=== PATIENT | female | born 1975 | race Caucasian/White ===

== ENCOUNTER 2019-02-28 10:12 | Emergency (ER) | payer OTHER ==
[~2019-02-28] VITALS: Ht 162.6 cm; Wt 75.5 kg
[2019-02-28 10:47] LABS: COLLECTION METHOD CLEAN CATCH
[2019-02-28 10:53] LABS: PH 7 (5-8); SQUAMOUS EPITHELIAL 0-2 /hpf; URINE APPEARANCE Clear; URINE BACTERIA None Seen /hpf; URINE BILIRUBIN Negative (NEGATIVE); URINE BLOOD Negative (NEGATIVE); URINE COLOR Straw; URINE GLUCOSE Negative (NEGATIVE); URINE KETONE Negative (NEGATIVE); URINE LEUKOCYTE ESTERASE Negative (NEGATIVE); URINE NITRATE Negative (NEGATIVE); URINE PROTEIN(semi-quant) Negative (NEGATIVE); URINE RBC 0-2 /hpf; URINE UROBILINOGEN Negative (NEGATIVE)
[2019-02-28 10:55] LABS: BASO # 0.1 (0.0-0.2); BASO % 0.4 % (0.0-2.0); EOS # 0.1 (0.0-0.7); GRAN # 10.4 (1.4-6.5); GRAN % 72.4 % (42.2-75.2); HEMATOCRIT 42.1 % (37.0-47.0); HEMOGLOBIN 14.9 g/dl (12.5-16.0); LYMPH # 2.5 (1.2-3.4); LYMPH % 17.7 % (20.0-51.0); MEAN CELL VOLUME 89 fl (80.0-100.0); MEAN CORPUSCULAR HEMOGLOBIN 31 pg (27.0-31.0); MEAN CORPUSCULAR HGB CONC 35 g/dl (33.0-37.0); MEAN PLATELET VOLUME 9.4 fl (7.4-10.4); MONO # 1.1 (0.1-0.6); PLATELET COUNT 388 K/mm3 (130-400); RED BLOOD COUNT 4.75 M/mm3 (4.10-5.30); REDCELL DISTRIBUTION WIDTH-CV 12.7 % (11.5-14.5)
[2019-02-28 11:04] LABS: ALBUMIN 4.7 gm/dL (3.5-5.0); BILIRUBIN,TOTAL 0.5 mg/dL (0.0-1.0); C-REACTIVE PROTEIN 3.3 mg/dL (0.0-0.9); CALCIUM 9.6 mg/dL (8.4-10.2); CREATININE, serum 0.66 (0.52-1.25); POTASSIUM 3.5 mmol/L (3.4-5.0); TOTAL PROTEIN 8.1 gm/dL (6.4-8.2)
[2019-02-28] MEDS ORDERED: NORCO 325 MG-7.1 TAB PO (12:21)
[2019-02-28] MEDS ORDERED: ZOFRAN ODT4 MG PO (12:21)
[2019-02-28 13:05] VITALS: BP 90/42; PULSE 58; TEMP 97.8
== END 2019-02-28 13:05 | disposition home or self-care (01) ==
LOC: COL.ER 10:12
PROVIDERS: Physician Assistant
DX: K55.069 Acute infarction of intestine, part and extent unspecified (principal); K21.9 Gastro-esophageal reflux disease without esophagitis; E03.9 Hypothyroidism, unspecified; Z90.89 Acquired absence of other organs; Z98.890 Other specified postprocedural states
CPT/HCPCS: J1885; J2270; J2405; J7030; Q9967